=== PATIENT | female | born 1970 | race Caucasian/White ===

== ENCOUNTER → 2016-09-14 | Outpatient (CLI) | payer BC ==
[~2016-09-14] MED LIST: GADOBUTROL 10mMol/10ml INJECTION IV ONE; SALINE FLUSH 10ml SYRINGE ONE
[2016-09-14 12:44] LABS: BASOPHILS % (AUTO) 0.5 % (0-2); EOSINOPHILS # (AUTO) 0.1 T/MM3 (0-0.5); EOSINOPHILS % (AUTO) 0.9 % (0-4); HGB - HEMOGLOBIN 14.1 GM/DL (12-16); IMMATURE GRANULOCYTE # (AUTO) 0.01 T/MM3 (0.00-0.03); IMMATURE GRANULOCYTE % (AUTO) 0.2 % (0.0-0.5); LYMPHOCYTES # (AUTO) 1.5 T/MM3 (1-4.8); MEAN CORPUSCULAR HGB 31.3 UUG (26-34); MEAN CORPUSCULAR HGB CONC(MCHC 33.6 GM/DL (31-37); MEAN CORPUSCULAR VOLUME 93.1 UM3 (80-100); MEAN PLATELET VOLUME 9.6 UM3 (9.4-12.4); MONOCYTES # (AUTO) 0.4 T/MM3 (0-0.8); MONOCYTES % (AUTO) 5.7 % (0-9.0); NEUTROPHILS #(AUTO)-ABSOLUTE 4.5 T/MM3 (1.8-7.7); NEUTROPHILS % (AUTO) 69.7 % (33-66); RED BLOOD COUNT 4.51 M/MM3 (4.00-5.20); WBC - WHITE BLOOD COUNT 6.5 T/MM3 (4.5-11.0)
--- NOTE | 2016-09-14 15:11 | DI ---
Indication: ITS.REASON: H46.8 Other optic neuritis, H53.8 Other visual disturbances PROCEDURE: MRI BRAIN W/WO CONTRAST: Encounter: Initial Comparisons: None Technique: Multiplanar, multisequence, MR imaging of the head with and without contrast was acquired. Special sequences were performed with attention to the orbits. Contrast: 6.5 mL of Gadavist FINDINGS: Orbits: There is subtle asymmetric enhancement of the lateral aspect of the left optic nerve, best seen on axial fat saturation postcontrast image #7 and coronal T1 postcontrast fat saturated image #12. No areas of abnormal enhancement seen within the right optic nerve. The globes are intact. Lenses are located. Extraocular muscles appear normal and symmetric. No enhancing lesions or masses seen within the orbits. Brain: The ventricles are of normal size, shape, and contour for the patient's age. There are small nonspecific punctate areas of T2-weighted and T2 FLAIR weighted signal abnormality in the deep frontoparietal white matter that are slightly advanced for the patient's age. Small lesions, the largest in the superior medial left frontal subcortical region on axial FLAIR image #18 measures 6 mm in size. There are 3-4 lesions in the left frontal lobe, one within the left temporal lobe and one or two lesions in the right frontal lobe. The brain stem, cerebellum, and cerebral hemispheres otherwise have a normal morphologic appearance as well as MR signal intensity on all pulse sequences. Following intravenous administration of contrast, no areas of abnormal enhancement are evident. There are no areas of restricted diffusion to suggest an acute infarct. There is no evidence of an intracranial mass lesion, intracranial hemorrhage, or hydrocephalus. The visualized portions of the calvarium, paranasal sinuses, and skull base demonstrate no significant abnormality. IMPRESSION: MRI orbits: Asymmetric enhancement of the lateral aspect of the left optic nerve compatible with the provided history of optic neuritis. MRI brain: Slightly increased number of nonspecific tiny white matter lesions as detailed above. These do not have any particular pattern to suggest demyelination although the finding of optic neuritis places this within the differential diagnosis. Other etiologies include small vessel ischemic disease and a number of postinfectious, posttraumatic and postinflammatory etiologies along with migraine headaches. .
[2016-09-17 02:53] LABS: FOLATE 13.4 NG/ML (2.76-20)
== END ==
LOC: IMA 12:09
PROVIDERS: ATTEND Ophthalmology
DX: H46.8 Other optic neuritis (principal); H53.8 Other visual disturbances; Z11.3 Encounter for screening for infections with a predominantly sexual mode of transmission; R90.89 Other abnormal findings on diagnostic imaging of central nervous system
CPT/HCPCS: 36415; 70543; 70553; 82607; 82746; 83520; 85025; 85652; 86038; 86140; 86592; 86611; 86618; 86780; A9585